=== PATIENT | male | born 1985 ===

== ENCOUNTER 2020-04-05 13:19 | Emergency (ER) | payer SELFPAY ==
[2020-04-05 13:38] VITALS: BP 104/73; PULSE 99
--- NOTE | 2020-04-05 14:24 | EDM.PDOC ---
Scribed by Crissy Rehman 04/05/20 5812 for Kate Rodriguez NP ED HPI GENERAL MEDICAL PROBLEM - General Chief Complaint: General Stated Complaint: HARD TO BREATH CHEST HURTS SHORTNESS OF BREATH Time Seen by Provider: 04/05/20 13:35 Source of Information: Reports: Patient, RN, RN Notes Reviewed History Limitations: Reports: No Limitations - History of Present Illness INITIAL COMMENTS - FREE TEXT/NARRATIVE: Patient is a 89year-old male who presents to the ER for symptoms that began x2 days ago. States symptoms began as a headache for 2 days. Yesterday he had body aches and weakness. States temperature wasup to 102 last evening. States he has been using Tylenol and ibuprofen. Patient states taste has been "off". While sitting in the room, patient has no shortness of breath with respirations 16 and 02 sats 97.1%. Onset: Gradual Duration: Getting Worse Location: Reports: Generalized Quality: Reports: Ache Severity: Severe Improves with: Reports: None Worsens with: Reports: None Associated Symptoms: Reports: No Other Symptoms Treatments CHECKROOM CHIEF: Reports: Acetaminophen - Related Data Allergies Allergy/AdvReac Type Severity Reaction Status Date / Time hydrocodone Allergy Syncope Verified 11/16/15 16:43 oxycodone [Oxycodone] Allergy Syncope Verified 12/22/13 22:15 oxycodone HCl Allergy Syncope Verified 12/22/13 22:15 [From OxyContin] Home Meds: Home Meds . [No Known Home Meds] 12/22/13 [History] Past Medical History - Past Health History Medical/Surgical History: Denies Medical/Surgical History ED ROS GENERAL - Review of Systems Review Of Systems: Comprehensive ROS is negative, except as noted in HPI. ED EXAM, GENERAL - Physical Exam Exam: See Below Exam Limited By: No Limitations General Appearance: Alert, WD/WN, No Apparent Distress Eye Exam: Bilateral Eye: EOMI, Normal Inspection, PERRL Ears: Normal External Exam, Normal Canal, Hearing Grossly Normal, Normal TMs Nose: Normal Inspection, Normal Mucosa, No Blood Throat/Mouth: Normal Inspection, Normal Lips, Normal Teeth, Normal Gums, Normal Oropharynx, Normal Voice, No Airway Compromise Head: Atraumatic, Normocephalic Neck: Normal Inspection, Supple, Non-Tender, Full Range of Motion Respiratory/Chest: No Respiratory Distress, Lungs Clear, Normal Breath Sounds, No Accessory Muscle Use, Chest Non-Tender Cardiovascular: Normal Peripheral Pulses, Regular Rate, Rhythm, No Edema, No Gallop, No JVD, No Murmur, No Rub GI/Abdominal: Normal Bowel Sounds, Soft, Non-Tender, No Organomegaly, No Distention, No Abnormal Bruit, No Mass (Male) Exam: Deferred Rectal (Males) Exam: Deferred Back Exam: Normal Inspection, Full Range of Motion, NT Extremities: Normal Inspection, Normal Range of Motion, Non-Tender, Normal Capillary Refill, No Pedal Edema Neurological: Alert, Oriented, CN II-XII Intact, Normal Cognition, Normal Gait, Normal Reflexes, No Motor/Sensory Deficits Psychiatric: Normal Affect, Normal Mood Skin Exam: Warm, Dry, Intact, Normal Color, No Rash Lymphatic: No Adenopathy Course - Vital Signs Last Recorded V/S: Last Vital Signs Temp 98.2 F 04/05/20 13:25 Pulse 99 04/05/20 13:25 Resp 16 04/05/20 13:25 BP 104/73 04/05/20 13:25 Pulse Ox 97 04/05/20 13:25 - Orders/Labs/Meds Orders: Active Orders 24 hr Category Date Time Status CORONAVIRUS COVID-19 PCR [facility] Stat Lab 04/05/20 13:50 Received Isolation [COMM] Routine Oth 04/05/20 13:57 Active Labs: Influenza A: Influenza B: - Re-Assessments/Exams Free Text/Narrative Re-Assessment/Exam: 04/05/20 14:18 States send out test performed. It was explained to the patient that rapid Covid testing is reserved for acutely ill, transfers, admissions, and essential personnel. Patient was informed to go home and quarantine until he received results from the state. Was also explained to the patient that he was not in respiratory distress, and his oxygen saturation was good, so we do not routinely empirically treat with steroids and antibiotics. Patient instructed if symptoms worsen, he is unable to breathe well, he is to return to the ER. Departure - Departure Time of Disposition: 14:30 Disposition: Home, Self-Care 01 Condition: Fair Clinical Impression: Generalized body aches Fever Qualifiers: Fever type: due to other condition Qualified Code(s): R50.81 - Fever presenting with conditions classified elsewhere - Discharge Information *PRESCRIPTION DRUG MONITORING PROGRAM REVIEWED*: No *COPY OF PRESCRIPTION DRUG MONITORING REPORT IN PATIENT XIOMARA: No Forms: ED Department Discharge Additional Instructions: Drink plenty of fluids, water, Gatorade/Powerade Continue to alternate Tylenol and ibuprofen as directed for fever/pain Rest Remain quarantined as a family until your results come back, follow state guidelines when instructed Return to the ER with any worsening of symptoms Sepsis Event Note (ED) - Focused Exam Vital Signs: Vital Signs Temp Pulse Resp BP Pulse Ox 04/05/20 13:25 98.2 F 99 16 104/73 97 - My Orders Last 24 Hours: My Active Orders 04/05/20 13:50 CORONAVIRUS COVID-19 PCR [facility] Stat 04/05/20 13:57 Isolation [COMM] Routine - Assessment/Plan Last 24 Hours: My Active Orders 04/05/20 13:50 CORONAVIRUS COVID-19 PCR [facility] Stat 04/05/20 13:57 Isolation [COMM] Routine I have read and agree with the documentation that has been completed regarding this visit. By signing this record, I attest that the documentation was completed in my physical presence and is an accurate record of the encounter.
== END 2020-04-05 14:50 | disposition home or self-care (01) ==
LOC: DL.ED 13:19
DX: U07.1 COVID-19 (principal); Z88.5 Allergy status to narcotic agent
CPT/HCPCS: 87804; 99282; 99283; U0002

== ENCOUNTER 2023-01-15 21:55 | Emergency (ER) | payer BC, OTHER ==
[2023-01-15 23:37] VITALS: BP 119/79; PULSE 91
[2023-01-15] MEDS ORDERED: Ketorolac 30 MG/ML SDV IM ONE (23:48)
== END 2023-01-16 00:21 | disposition home or self-care (01) ==
LOC: DL.ED 21:55
DX: L27.1 Localized skin eruption due to drugs and medicaments taken internally (principal); Z88.5 Allergy status to narcotic agent; F17.210 Nicotine dependence, cigarettes, uncomplicated
CPT/HCPCS: 96372; 99282; J1885